=== PATIENT | female | born 1975 | race Hispanic/Latino ===

== ENCOUNTER 2016-03-23 23:18 | Emergency (ER) | payer OTHER ==
[2016-03-24] MEDS ORDERED: SODIUM CHLORIDE 0.9% 1,000 ML ONE (02:04)
[2016-03-24] MEDS ORDERED: DILAUDID 1 MG/ML AMP ONE ×2 (02:50→03:43)
[2016-03-24] MEDS ORDERED: ONDANSETRON 4 MG VIAL ONE (02:50)
[2016-03-24] MEDS ORDERED: KCL CR 20 MEQ TAB PO ONE (03:35)
== END 2016-03-24 04:27 | disposition home or self-care (01) ==
LOC: ER 23:18
DX: R10.11 Right upper quadrant pain (principal); R10.13 Epigastric pain; K29.50 Unspecified chronic gastritis without bleeding; R74.8 Abnormal levels of other serum enzymes
CPT/HCPCS: 36415; 80053; 80320; 81001; 82150; 83690; 84703; 85025; 96361; 96374; 96375